=== PATIENT | male | born 1980 | race Two or more races ===

== ENCOUNTER 2017-11-28 20:53 | Emergency (ER) | payer BC ==
[~2017-11-28] VITALS: Ht 162.6 cm; Wt 79.4 kg
[2017-11-28] MEDS ORDERED: Fluorescein Strips ONE (21:17)
[2017-11-28 21:18] VITALS: BP 140/97
[2017-11-28] MEDS ORDERED: POLYTRIM OP SOL10 ML OPHTHALM (21:26)
--- NOTE | 2017-11-28 21:26 | Emergency Room Report ---
History of Present Illness General Chief Complaint: Foreign Body Source: Patient Present Illness HPI Is a 37-year-old male with no past medical history. He presents with a foreign body to the right eye. He was working on his house cutting wood and he felt something flew into his eye. Return to get it out. Complaining of scratchiness and itchiness. Tearing. No fever or chills. Onset tonight. No other complaint. No loss of vision Allergies: Coded Allergies: No Known Allergies (Unverified , 11/28/17) Patient History Past Medical History: see triage record, old chart reviewed Past Surgical History: none Pertinent Family History: none Social History: Denies: smoking Immunizations: other Reviewed Nursing Documentation: PMH: Agreed, PSxH: Agreed Nursing Documentation-PMH Past Medical History: No Stated History Review of Systems Eye: Reports: eye pain, Denies: blurred vision ENT: Denies: ear pain, nose congestion, throat swelling Respiratory: Denies: cough, shortness of breath Cardiovascular: Denies: chest pain, palpitations Gastrointestinal: Denies: abdominal pain, diarrhea, nausea, vomiting Musculoskeletal: Denies: back pain, joint pain Skin: Denies: rash Neurological: Denies: headache, numbness Endocrine: Denies: increased thirst, increased urine Hematologic/Lymphatic: Denies: easy bruising All Other Systems: negative except mentioned in HPI Physical Exam Vital Signs Date Time Temp Pulse Resp B/P (MAP) Pulse Ox O2 Delivery O2 Flow Rate FiO2 11/28/17 21:00 98.2 65 20 140/97 97 Room Air vitals normal Sp02 EP Interpretation: reviewed, normal General Appearance: well appearing, no apparent distress, alert Head: normocephalic, atraumatic Eyes: right eye fluoroscene uptake, right eye other - corneal abrasion at 9 o' clock, bilateral eye PERRL, bilateral eye EOMI ENT: hearing grossly normal, normal pharynx Neck: full range of motion, supple, no meningismus Respiratory: chest non-tender, lungs clear, normal breath sounds Cardiovascular #1: regular rate, rhythm, no murmur Gastrointestinal: normal bowel sounds, non tender, no mass, no organomegaly, no bruit, non-distended Musculoskeletal: back normal, gait/station normal, normal range of motion Psychiatric: mood/affect normal Skin: warm/dry Medical Decision Making Diagnostic Impression: Primary Impression: Right corneal abrasion Qualified Codes: S05.01XA - Injury of conjunctiva and corneal abrasion without foreign body, right eye, initial encounter ER Course Patient presents with a cornea abrasion. No foreign body. No globe rupture. Negative Jossy sign. We'll discharge home. Last Vital Signs Date Time Temp Pulse Resp B/P (MAP) Pulse Ox O2 Delivery O2 Flow Rate FiO2 11/28/17 21:00 98.2 65 20 140/97 97 Room Air Status: improved Disposition: HOME, SELF-CARE Condition: Stable Scripts Polymyxin/Trimethoprim (Polytrim Eye Drops) 10 Ml Drops 2 DROP OPHTHALM THREE TIMES A DAY, #1 EA Instill in affected eye for 7 days Prov: ADIS ARCHER M.D. 11/28/17 Additional Instructions: Followup with your Dr. in 7 days. Return if worse. ADIS ARCHER M.D. Nov 28, 2017 21:26
[2017-11-28] MEDS ORDERED: Fluorescein Strips RIGHT EYE ONE (21:30)
[2017-11-28 21:41] VITALS: BP 140/97
== END 2017-11-28 21:50 | disposition home or self-care (01) ==
LOC: EMR 21:47
DX: S05.01XA Injury of conjunctiva and corneal abrasion without foreign body, right eye, initial encounter (principal); X58.XXXA Exposure to other specified factors, initial encounter; Y92.009 Unspecified place in unspecified non-institutional (private) residence as the place of occurrence of the external cause
CPT/HCPCS: 99283